=== PATIENT | male | born 1975 | race Caucasian/White ===

== ENCOUNTER 2022-02-23 08:30 | Emergency (ER) | payer SELFPAY ==
[2022-02-23 08:46] VITALS: BMI 28.0
[2022-02-23] MEDS ORDERED: ACETAMINOPHEN 1000 MG/100 ML BAG IVPB ONE (09:37)
[2022-02-23] MEDS ORDERED: DIPHTH,PERTUSS(ACELL),TET 0.5 ML DISP.SYRIN IM ONE ×2 (09:38→10:05)
[2022-02-23] MEDS ORDERED: LIDOCAINE 5% TOPICAL PATCH TP ONE (09:47)
[2022-02-23] MEDS ORDERED: ACETAMINOPHEN 325 MG TABLET (FP) PO ONE (09:47)
[2022-02-23] MEDS ORDERED: LIDOCAINE 5% TOPICAL PATCH ONE (10:04)
[2022-02-23] MEDS ORDERED: ACETAMINOPHEN 325 MG TABLET (FP) ONE (10:04)
[2022-02-23 12:27] LABS: HIV INTERPRETATION NEGATIVE (NEGATIVE)
[2022-02-23 14:15] VITALS: BP 98/61; PULSE 79; TEMP 98.1
[2022-02-23] MEDS ORDERED: LIDOCAINE PATCH REMOVAL MC ONE (22:00)
== END 2022-02-23 16:48 | disposition home or self-care (01) ==
LOC: JER 08:30
PROC: 3E0234Z Introduction of Serum, Toxoid and Vaccine into Muscle, Percutaneous Approach (ICD-10-PCS; principal; 2022-02-23)
DX: S51.852A Open bite of left forearm, initial encounter (principal); S21.151A Open bite of right front wall of thorax without penetration into thoracic cavity, initial encounter; M54.50 Low back pain, unspecified; Y04.1XXA Assault by human bite, initial encounter; Y04.8XXA Assault by other bodily force, initial encounter
CPT/HCPCS: 36415; 71046-TC-FY; 71101-TC-LT-FY; 71250-TC; 74176-TC; 86705; 86803; 87340; 87389; 87517; 90715; 99285-25

== ENCOUNTER 2023-01-03 00:44 | Emergency (ER) | payer SELFPAY ==
[2023-01-03 00:57] VITALS: BP 140/87; PULSE 126; RESP 24; TEMP 98.8; BMI 29.8
[2023-01-03] MEDS ORDERED: SODIUM CHLORIDE FOR INHALATION 3 ML VIAL.NEB IH ONE (02:39)
[2023-01-03] MEDS ORDERED: LORazepam 2 MG TABLET PO ONE (02:50)
[2023-01-03] MEDS ORDERED: LORazepam 1 MG TABLET ONE (02:59)
== END 2023-01-03 03:51 | disposition home or self-care (01) ==
LOC: JER 00:44
PROC: 3E0F7GC Introduction of Other Therapeutic Substance into Respiratory Tract, Via Natural or Artificial Opening (ICD-10-PCS; principal; 2023-01-03)
DX: T46.3X1A Poisoning by coronary vasodilators, accidental (unintentional), initial encounter (principal); F41.9 Anxiety disorder, unspecified; R09.81 Nasal congestion; H57.89 Other specified disorders of eye and adnexa; R00.0 Tachycardia, unspecified; Z20.822 Contact with and (suspected) exposure to COVID-19
CPT/HCPCS: 0241U-QW; 99283-25